=== PATIENT | male | born 1950 | race Caucasian/White ===

== ENCOUNTER → 2016-09-30 | Outpatient (CLI) | payer BC ==
[2016-09-30 10:15] LABS: ALT 40 U/L (21-72); AST 22 U/L (17-59); Cholesterol 219 mg/dL (<200); HDL Cholesterol 55 mg/dL (40-60); Triglycerides 126 mg/dL (<150)
== END | disposition home or self-care (01) ==
LOC: LABWHC1 08:34
PROVIDERS: ATTEND Internal Medicine Cardiovascular Disease
DX: E78.5 Hyperlipidemia, unspecified (principal)
CPT/HCPCS: 36415; 80061; 84450; 84460

== ENCOUNTER 2017-04-25 08:30 | Day surgery (SDC) | payer BC ==
[2017-04-23 17:43] VITALS: BMI 26.4
[2017-04-25] MEDS: LACTATED RINGERS 1,000 ML IV SCH ×2 (09:17→09:18)
[2017-04-25] MEDS: LIDOCAINE 1% 20 ML VIAL (10MG/ML) FOR IV START INTRADERMA PRN ×2 (09:17→09:19)
[2017-04-25 09:18] VITALS: TEMP 97.1
[2017-04-25] MEDS ORDERED: PROPOFOL 10 MG/ML 20 ML VIAL IV ONE (09:18)
--- NOTE | 2017-04-25 09:29 | P.GSHP ---
History of Present Illness H&P Date: 04/25/17 Chief Complaint: History of colon polyps, screening colonoscopy This is a 66-year-old male for from Dr. Scott Bejarano. Patient presents today for screening colonoscopy. His last colonoscopy was approximately 5 years ago. He's had several colonoscopies with colonic polyps. Past Medical History Past Medical History: Deep Vein Thrombosis (DVT), GERD/Reflux, Hyperlipidemia Additional Past Medical History / Comment(s): Hx polyps,hypoglycemia,DVT rt leg post james approx 2006 History of Any Multi-Drug Resistant Organisms: None Reported Past Surgical History: Cholecystectomy Additional Past Surgical History / Comment(s): cataract surgery bilateral with lens implants Past Anesthesia/Blood Transfusion Reactions: No Reported Reaction Smoking Status: Never smoker - Past Family History Mother Family Medical History: Cancer Additional Family Medical History / Comment(s): colon Father Family Medical History: No Reported History Medications and Allergies Home Medications Medication Instructions Recorded Confirmed Type Aspirin 81 mg PO DAILY 04/15/14 04/23/17 History Ezetimibe [Zetia] 10 mg PO DAILY 04/15/14 04/23/17 History Montelukast [Singulair] 10 mg PO DAILY PRN 04/23/17 04/23/17 History Omeprazole [PriLOSEC] 20 mg PO DAILY 04/23/17 04/23/17 History Allergies Allergy/AdvReac Type Severity Reaction Status Date / Time No Known Allergies Allergy Verified 04/25/17 09:02 Surgical - Exam Vital Signs Temp Pulse Resp BP Pulse Ox 97.1 F L 74 16 128/80 97 04/25/17 09:03 04/25/17 09:03 04/25/17 09:03 04/25/17 09:03 04/25/17 09:03 - General well developed, no distress - Eyes PERRL - ENT normal pinna - Neck no masses - Respiratory normal expansion - Cardiovascular Rhythm: regular - Abdomen Abdomen: soft, non tender Assessment and Plan Assessment: History of colon polyps. We'll perform colonoscopy.
--- NOTE | 2017-04-25 09:44 | P.OP ---
Date of Procedure: 04/25/17 Preoperative Diagnosis: History of colon polyps Screening colonoscopy Postoperative Diagnosis: Diverticulosis Right colon polyp Procedure(s) Performed: Colonoscopy Anesthesia: MAC Surgeon: Kenroy Hills Pathology: other (Right colon polyp) Condition: stable Disposition: PACU Description of Procedure: The patient's placed on the endoscopy table lateral position. He received IV sedation. Digital rectal exam was performed which revealed no abnormalities. Flexible colonoscope was then placed patient anus and passed throughout the entire colon. The ileocecal valve was visualized. The cecum appeared normal. In the right colon there was a polyp seen this removed the forcep. The remainder the right colon was normal. The transverse colon was normal. The descending colon was normal. In the sigmoid colon there is extensive diverticular changes. Scope was then brought back the rectum and this appeared normal. Scope was then withdrawn from patient.
[2017-04-25 10:01] VITALS: RESP 18
[2017-04-25 10:07] VITALS: BP 115/69; PULSE 60
== END 2017-04-25 10:23 | disposition home or self-care (01) ==
LOC: ORWHC2ENDO 08:30
PROVIDERS: ATTEND Surgery
DX: D12.2 Benign neoplasm of ascending colon (principal); K57.30 Diverticulosis of large intestine without perforation or abscess without bleeding; E78.5 Hyperlipidemia, unspecified; K21.9 Gastro-esophageal reflux disease without esophagitis; Z79.82 Long term (current) use of aspirin; Z86.718 Personal history of other venous thrombosis and embolism
CPT/HCPCS: 45380; J2704; 88305

== ENCOUNTER 2017-09-23 10:11 | Day surgery (SDC) | payer BC, MEDICARE ==
[2017-09-19 10:07] VITALS: BMI 26.7
[~2017-09-23 10:11] MED LIST: LACTATED RINGERS 1,000 ML IV SCH; LIDOCAINE 1% 20 ML VIAL (10MG/ML) FOR IV START INTRADERMA PRN
[2017-09-23 10:36] VITALS: TEMP 97
[2017-09-23] MEDS ORDERED: PROPOFOL 10 MG/ML 20 ML VIAL IV ONE (10:47)
[2017-09-23] MEDS ORDERED: GLYCOPYRROLATE 0.2 MG/ML 2 ML VIAL ONE (10:47)
[2017-09-23] MEDS ORDERED: LIDOCAINE 1% INJ 10MG/ML (20 ML MDV) ONE (10:47)
--- NOTE | 2017-09-23 10:55 | P.GSHP ---
History of Present Illness H&P Date: 09/23/17 Chief Complaint: GERD This is a 67-year-old male referred from Dr. Scott Bejarano. Patient presents today for EGD. He's had issues with GERD. Past Medical History Past Medical History: Cancer, Deep Vein Thrombosis (DVT), GERD/Reflux, Hyperlipidemia, Pneumonia, Skin Disorder Additional Past Medical History / Comment(s): Hx polyps, hypoglycemia, DVT rt leg post cholecystectomy, skin cancer History of Any Multi-Drug Resistant Organisms: None Reported Past Surgical History: Adenoidectomy, Cholecystectomy, Orthopedic Surgery, Tonsillectomy Additional Past Surgical History / Comment(s): cataract surgery bilateral with lens implants, colonscopy, surgery on rt leg as child, Past Anesthesia/Blood Transfusion Reactions: No Reported Reaction Smoking Status: Never smoker - Past Family History Mother Family Medical History: Cancer Additional Family Medical History / Comment(s): colon Father Family Medical History: No Reported History Medications and Allergies Home Medications Medication Instructions Recorded Confirmed Type Aspirin 81 mg PO DAILY 04/15/14 09/23/17 History Ezetimibe [Zetia] 10 mg PO HS 04/15/14 09/23/17 History Omeprazole [PriLOSEC] 20 mg PO W/SUPPER 04/23/17 09/23/17 History Allergies Allergy/AdvReac Type Severity Reaction Status Date / Time No Known Allergies Allergy Verified 09/23/17 10:19 Surgical - Exam Vital Signs Temp Pulse Resp BP Pulse Ox 97 F L 47 L 16 137/78 98 09/23/17 10:35 09/23/17 10:35 09/23/17 10:35 09/23/17 10:35 09/23/17 10:35 - General well developed, no distress - Eyes PERRL - ENT normal pinna - Neck no masses, no bruits - Respiratory normal expansion, normal respiratory effort - Cardiovascular Rhythm: regular - Abdomen Abdomen: soft, non tender Assessment and Plan Assessment: GERD. We'll perform EGD.
--- NOTE | 2017-09-23 11:02 | P.OP ---
Date of Procedure: 09/23/17 Preoperative Diagnosis: GERD Postoperative Diagnosis: Antral gastritis Moderate size hiatal hernia Mild esophagitis Procedure(s) Performed: EGD Anesthesia: MAC Surgeon: Kenroy Hills Pathology: other (Antrum, esophagus) Condition: stable Disposition: PACU Description of Procedure: The patient's placed on the endoscopy table in the lateral position. He received IV sedation. The gastroscope placed oropharynx passed in the esophagus into the stomach. Scope was placed through the pylorus. The first and second portion of the duodenum appeared normal. Scope was then brought back the antrum and this appeared mildly inflamed. A biopsy was performed. The scope was then retroflexed and the remainder of the stomach appeared normal. The patient had a moderate size hiatal hernia. The GE junction was at 38 cm. The distal esophagus appeared mildly inflamed and a biopsies performed. The proximal esophagus appeared normal. The scope was withdrawn for patient.
[2017-09-23 11:32] VITALS: BP 147/93; PULSE 46; RESP 18
== END 2017-09-23 11:37 | disposition home or self-care (01) ==
LOC: ORWHC2ENDO 10:11
PROVIDERS: ATTEND Surgery
DX: K29.50 Unspecified chronic gastritis without bleeding (principal); K21.0 Gastro-esophageal reflux disease with esophagitis; K44.9 Diaphragmatic hernia without obstruction or gangrene; K29.60 Other gastritis without bleeding; E78.5 Hyperlipidemia, unspecified; Z86.718 Personal history of other venous thrombosis and embolism; Z85.828 Personal history of other malignant neoplasm of skin; Z79.82 Long term (current) use of aspirin; Z80.0 Family history of malignant neoplasm of digestive organs; Z79.899 Other long term (current) drug therapy
CPT/HCPCS: 88305; 43239; J2001; J2704

== ENCOUNTER → 2017-12-12 | Outpatient (CLI) | payer BC ==
[2017-12-12 08:51] LABS: Albumin 4.1 g/dL (3.5-5.0); Bilirubin, Delta 0.2 mg/dL (0.0-0.2); Bilirubin,Unconjugated 0.4 mg/dL (0.0-1.1); Total Bilirubin 0.6 mg/dL (0.2-1.3); Total Protein 6.6 g/dL (6.3-8.2)
== END | disposition home or self-care (01) ==
LOC: LABWHC1 08:14
PROVIDERS: ATTEND Internal Medicine Cardiovascular Disease
DX: E78.5 Hyperlipidemia, unspecified (principal)
CPT/HCPCS: 36415; 80061; 80076

== ENCOUNTER 2018-03-12 11:46 | Inpatient (IN) | payer BC, MEDICARE ==
[2018-03-12] MEDS ORDERED: SODIUM CHLORIDE 0.9% 500 ML 500 ML IV SCH (14:00)
[2018-03-12 14:17] LABS: Basophils % (A) 0 %; Eosinophils % (A) 1 %; HCT 43.8 % (39.0-53.0); HGB 14.6 gm/dL (13.0-17.5); Lymphocytes # (A) 0.6 k/uL (1.0-4.8); Lymphocytes % (A) 15 %; MCH 30.1 pg (25.0-35.0); MCHC 33.4 g/dL (31.0-37.0); MCV 90.1 fL (80.0-100.0); Mean Platelet Volume 8.2; Monocytes # (A) 0.4 k/uL (0-1.0); Monocytes % (A) 9 %; Neutrophils # (A) 3.2 k/uL (1.3-7.7); Neutrophils % (A) 74 %; Platelet Count 154 k/uL (150-450); RBC 4.86 m/uL (4.30-5.90); RDW 12.8 % (11.5-15.5); WBC 4.3 k/uL (3.8-10.6)
[2018-03-12 14:25] LABS: Anion Gap 6 mmol/L; Blood Urea Nitrogen 13 mg/dL (9-20); Calcium 9.1 mg/dL (8.4-10.2); Carbon Dioxide 25 mmol/L (22-30); Chloride 107 mmol/L (98-107); Glucose 98 mg/dL (74-99); Potassium 4.5 mmol/L (3.5-5.1); Sodium 138 mmol/L (137-145)
[2018-03-12] MEDS ORDERED: ASPIRIN 325 MG TAB PO STA (14:25)
[2018-03-12] MEDS ORDERED: NITROGLYCERIN SL TABS 0.4 MG TAB SUBLINGUAL PRN (14:26)
[2018-03-12] MEDS ORDERED: HEPARIN SODIUM,PORCINE 5,000 UNIT/ML 1 ML VIAL IV PRN (14:38)
[2018-03-12] MEDS ORDERED: HEPARIN SODIUM,PORCINE 5,000 UNIT/ML 1 ML VIAL IV ONE (14:38)
--- NOTE | 2018-03-12 14:38 | XR ---
EXAMINATION TYPE: XR chest 2V DATE OF EXAM: 03/12/2018 COMPARISON: 04/05/2011 TECHNIQUE: PA and lateral views submitted. HISTORY: Shortness of breath FINDINGS: The lungs are clear and there is no pneumothorax, pleural effusion, or focal pneumonia. Atheroscler otic change of the aorta. Hypertrophic and degenerative change of the spine. Interstitium is prominen t coarsened. IMPRESSION: 1. Interval mild increase in the interstitium correlate for interstitial pneumonitis or venous conges tion..
[2018-03-12] MEDS ORDERED: CLOPIDOGREL 75 MG TAB PO SCH (14:45)
[2018-03-12] MEDS ORDERED: HEPARIN SOD,PORK IN 0.45% NACL 25,000 UNIT in 0.45% NACL 1 500ML.BAG IV SCH (14:45)
[2018-03-12 15:26] LABS: Prothrombin Time 10.2 sec (9.0-12.0)
[2018-03-12 15:27] LABS: Partial Thromboplastin Time 26.1 sec (22.0-30.0)
[2018-03-12] MEDS ORDERED: RX INFO: IV CONTRAST WAS GIVEN 1 EACH MISC MISCELLANE PRN (16:23)
[2018-03-12 16:24] LABS: Cholesterol 196 mg/dL (<200); HDL Cholesterol 46 mg/dL (40-60); LDL Cholesterol,Calculated 131 mg/dL (0-99); Triglycerides 97 mg/dL (<150)
[2018-03-12] MEDS: AZITHROMYCIN 500 MG in SODIUM CHLORIDE 0.9% 250 ML IVPB SCH (16:34)
[2018-03-12] MEDS: NITROGLYCERIN OINT 1 INCH/GM PACKET TOPICAL SCH ×2 (17:41→23:26)
[2018-03-12] MEDS: methylPREDNISolone SOD SUCCI 125 MG/2 ML VIAL IV SCH ×2 (17:46→23:12)
[2018-03-12] MEDS: ATORVASTATIN 40 MG TAB PO SCH (17:46)
--- NOTE | 2018-03-12 17:46 | CT ---
EXAMINATION TYPE: CT angio chest DATE OF EXAM: 03/12/2018 5:09 PM COMPARISON: None HISTORY: elevated d-dimer CT DLP: 407.4 mGycm Automated exposure control for dose reduction was used. CONTRAST: CTA scan of the thorax is performed with IV Contrast, patient injected with 68 mL of Isovue 370, pulm onary embolism protocol. . FINDINGS: There are 3-D post processed images. Mediastinum is normal. There is no mediastinal adenopathy. There is no evidence of thoracic aortic an eurysm or dissection. There is normal contrast opacification of the pulmonary arteries. I see no fill ing defects. There are no hilar masses. There is small hiatal hernia. There is no pericardial effusio n. There is mild reticular interstitial density at the lung bases. There is no evidence of pulmonary mass. The bony thorax is intact. There is spurring in the thoracic spine. There is 3 cm cortical cyst anterior left kidney. IMPRESSION: NO EVIDENCE OF PULMONARY EMBOLISM. MILD FIBROTIC CHANGES AT THE LUNG BASES. SMALL HIATAL HERNIA.
[2018-03-12 18:15] LABS: Glucose,Whole Blood 87 mg/dL (75-99)
--- NOTE | 2018-03-12 18:24 | P.CNPUL ---
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 has been in good state of health, his prior history is significant for BPH, hiatal hernia, dyslipidemia and hypertension has been doing very well except about 3-4 days ago started having increased cough feeling of chest congestion and increasing shortness of breath and was persistent for the last 4 days however denies any chest pain with those problem patient was seen evaluated examined at primary care's office and advised to be admitted into the hospital for further evaluation and intervention and treatment cardiovascular services has been consulted, patient underwent computed tomography scan of the chest as well as x-ray x-rays unremarkable however computed tomography scan suggestive of prominent interstitium which is somewhat patchy in color suggestive of interstitial pneumonia very early, on specific questioning patient denies any seizure-like to a loss of consciousness) denies any chest pain or radiation of pain, denies any hemoptysis, denies any bowel or bladder dysfunction, since he's been on Flomax the stream have improved, denies any nausea vomiting or diarrhea, patient does not take flu shots as well as does not shake pneumonia shot Review of Systems All systems: negative Past Medical History Past Medical History: Cancer, Deep Vein Thrombosis (DVT), GERD/Reflux, Hyperlipidemia, Pneumonia, Skin Disorder, Syncope Additional Past Medical History / Comment(s): Past pneumonia, bronchitis, chronic sinusitis, current bilateral eyes/styes, DVT R leg post op cholecystectomy, lower GI bleed thought to be d/t hemorrhoids, esophagitis, gastritis, hiatal hernia, diverticular disease, hypoglycemia, collar bone fracture as a child, R leg and R foot malformations with surgery/hardware, skin cancer with removals. History of Any Multi-Drug Resistant Organisms: None Reported Past Surgical History: Adenoidectomy, Cholecystectomy, Orthopedic Surgery, Tonsillectomy Additional Past Surgical History / Comment(s): 2006 Cardiac cath, skin cancer removals, R leg and R foot surgeries as a child to correct malformations-has hardware in foot, L carpal tunnel release, bilateral cataract removals/lens implants, EGD with bx, colonoscopy. Past Anesthesia/Blood Transfusion Reactions: No Reported Reaction Smoking Status: Never smoker - Past Family History Mother Family Medical History: Cancer Additional Family Medical History / Comment(s): Mother had colon cancer with surgery. Maternal grandmother of colon cancer. Father Family Medical History: Myocardial Infarction (MA) Additional Family Medical History / Comment(s): Father of a massive MA at the age of 50 yrs. Paternal grand father of a massive MA at the age of 56yrs. Medications and Allergies Home Medications Medication Instructions Recorded Confirmed Type Aspirin 81 mg PO DAILY 04/15/14 03/12/18 History Omeprazole [PriLOSEC] 20 mg PO DAILY 04/23/17 03/12/18 History Montelukast [Singulair] 10 mg PO DAILY 03/12/18 03/12/18 History Tamsulosin HCl [Flomax] 0.4 mg PO DAILY 03/12/18 03/12/18 History Zetia (Unknown Dose) 1 tab PO DAILY 03/12/18 03/12/18 History Allergies Allergy/AdvReac Type Severity Reaction Status Date / Time No Known Allergies Allergy Verified 09/23/17 10:19 Physical Exam Vitals: Vital Signs Temp Pulse Resp BP Pulse Ox 03/12/18 13:17 98.9 F 61 18 142/71 100 Intake and Output 03/12/18 03/12/18 03/12/18 06:59 14:59 22:59 Intake Total 0 Balance 0 Intake: Intake, IV Titration 0 Amount Heparin Sod,Pork in 0.45% 0 NaCl 25,000 unit In 0.45 % NaCl 1 500ml.bag @ 11.6 UNITS/KG/HR 19.95 mls/hr IV .Q24H [facility] Rx#: [id number] Other: Weight 86 kg - Constitutional General appearance: average body habitus, cooperative, mild distress, obese - EENT Eyes: EOMI, PERRLA, dentition normal, normal appearance Ears: bilateral: normal - Neck Neck: normal ROM Carotids: bilateral: upstroke normal Thyroid: bilateral: normal size - Respiratory Respiratory: bilateral: diminished, rales (More so on the right side compared to left side), negative: dullness, rhonchi, wheezing, prolonged expiration, prolonged inspiration - Cardiovascular Rhythm: regularly irregular Heart sounds: normal: S1, S2 - Gastrointestinal General gastrointestinal: normal bowel sounds, soft - Integumentary Integumentary: normal, normal turgor - Neurologic Neurologic: CNII-XII intact - Musculoskeletal Musculoskeletal: gait normal, generalized weakness, strength equal bilaterally - Psychiatric Psychiatric: A&O x's 3, appropriate affect, intact judgment & insight Results - Laboratory Findings CBC and BMP: 03/12/18 14:05 03/12/18 14:05 PT/INR, D-dimer PT 10.2 sec (9.0-12.0) 03/12/18 14:05 INR 1.0 (<1.2) 03/12/18 14:05 D-Dimer 0.68 mg/L FEU (<0.60) H 03/12/18 14:05 Abnormal lab findings: Abnormal Labs 03/12/18 03/12/18 03/12/18 14:05 14:05 14:05 Lymphocytes # 0.6 L D-Dimer 0.68 H LDL Cholesterol, Calc 131 H - Diagnostic Findings Chest x-ray: report reviewed, image reviewed CT scan - chest: report reviewed, image reviewed (Slight more prominent interstitium especially at bilateral bases) Assessment and Plan Assessment: Interstitial pneumonia/atypical ammonia Suspect viral pneumonia like influenza pneumonia History of dyslipidemia and hypertension Obesity New onset shortness of breath Plan: Gentle rehydration Broad-spectrum antibiotics agree with Rocephin along with Zithromax We'll check nasopharyngeal swab for influenza A and B We'll initiate patient on Tamiflu 75 twice a day for now Further recommendations pending plan of care as per clinical response of the patient Resume home medications Overall observe closely, as always appreciate involving us in care of patient follow this patient with you
[2018-03-12] MEDS: INSULIN ASPART 100 UNIT/ML 1 ML 10 ML VIAL SQ SCH ×2 (18:38→21:52)
--- NOTE | 2018-03-12 19:57 | CONS ---
CONSULTATION ATTENDING: Dr. Scott Cabrera Mr. Guerra is a 67-year-old male with a known family history of coronary artery disease but no history of coronary artery disease in himself who for the last few months has been complaining of progressive dyspnea on exertion. He has no significant peripheral edema. No chest discomfort. No palpitation. He had dizziness and a syncopal episode few months ago. He was seen by Dr. Cabrera today and was febrile in the office. He has mild cough that was non significant and because of that he was direct admit to the hospital. In the hospital, an EKG was done that showed artifact that was read as an ST-segment elevation myocardial infarction. There was concern from the nursing staff. Upon repeating the EKG there was no significant EKG changes. The patient has been followed by Dr. Wiggins on a regular basis. Has no exertional chest discomfort. No tightness in the chest. He has no dizziness recently or palpitation. He has underwent stress test and echo in the past that were unremarkable. Underwent cardiac catheterization about 8 years ago that was unremarkable as well according to him. His coronary risk factors are negative for hypertension or diabetes. He has hyperlipidemia. He is a nonsmoker. He has a family history of premature coronary artery disease. MEDICATIONS: Zetia 10 mg daily, Singulair, tamsulosin, omeprazole, and aspirin once a day. REVIEW OF SYSTEMS: RESPIRATORY SYSTEM: He has no history of documented asthma or emphysema. He is a non smoker. GI SYSTEM: No recent GI bleeding. No peptic ulcer disease. SYSTEM: No dysuria or hematuria. NERVOUS SYSTEM: No history of stroke or seizure. PHYSICAL EXAMINATION: He is a 67-year-old male, alert, oriented, in no apparent distress. Blood pressure 142/70 with a heart rate in the 60s. HEAD: Normocephalic. EYES: Sclerae anicteric. NECK: Good upstroke. No bruit or jugular venous distention. LUNGS: Clear to auscultation. HEART: Regular rate and rhythm. S1, S2. No S3. No S4. No murmur or rub. ABDOMEN: Soft, nontender. Positive bowel sounds. No megaly. EXTREMITIES: No edema. Intact distal pulses. EKG reveals sinus mechanism, normal axis, intervals, normal electrocardiogram. Chest x- ray revealed mild increased interstitium raising the possibility of interstitial pneumonitis. His troponin is less than 0.012. White blood cell 4.3. Hemoglobin 14.6. D-dimer 0.68. BUN and creatinine 13 and 0.79. Potassium 4.5. IMPRESSION: 1. Symptoms of progressive dyspnea of unclear etiology. Patient was febrile today, raising possibility of infectious process. There was a question of infiltrate on the chest x-ray, although not definite. The patient has no clear symptoms of coughing. 2. Hyperlipidemia. 3. Family history of premature coronary artery disease. RECOMMENDATION: From the cardiac standpoint, I will obtain serial enzymes and I will obtain an EKG tomorrow. I will also obtain echocardiogram with Doppler. I will add to his regimen aspirin as well as nitrate. Depending on the results of his lab data and his echocardiogram and further workup, decision can be made regarding the need to undergo further cardiac workup including either stress test or cardiac catheterization if there is any abnormalities. I have discussed with the patient those finding in detail as well as his and they are in full understanding and agreement. Thank you for this consult. We will follow with you. MMODL / IJN: [id number] /
[2018-03-12] MEDS: ALBUTEROL NEBULIZED 2.5 MG/3 ML INHALATION SCH ×2 (20:13→23:44)
[2018-03-12 21:48] LABS: Glucose,Whole Blood 137 mg/dL (75-99)
[2018-03-12] MEDS: OSELTAMIVIR 75 MG CAP PO SCH (23:12)
[2018-03-13] MEDS: ALBUTEROL NEBULIZED 2.5 MG/3 ML INHALATION SCH ×3 (03:17→11:12)
[2018-03-13 04:07] LABS: Basophils % (A) 0 %; Eosinophils % (A) 1 %; HCT 44.7 % (39.0-53.0); HGB 14.6 gm/dL (13.0-17.5); Lymphocytes # (A) 0.5 k/uL (1.0-4.8); Lymphocytes % (A) 20 %; MCH 29.7 pg (25.0-35.0); MCHC 32.6 g/dL (31.0-37.0); MCV 90.9 fL (80.0-100.0); Mean Platelet Volume 7.5; Monocytes # (A) 0.1 k/uL (0-1.0); Monocytes % (A) 3 %; Neutrophils # (A) 1.7 k/uL (1.3-7.7); Neutrophils % (A) 75 %; Platelet Count 163 k/uL (150-450); RBC 4.92 m/uL (4.30-5.90); RDW 12.7 % (11.5-15.5); WBC 2.3 k/uL (3.8-10.6)
[2018-03-13 04:20] LABS: Anion Gap 8 mmol/L; Blood Urea Nitrogen 15 mg/dL (9-20); Carbon Dioxide 22 mmol/L (22-30); Chloride 108 mmol/L (98-107); Glucose 158 mg/dL (74-99); Potassium 4.6 mmol/L (3.5-5.1); Sodium 138 mmol/L (137-145)
[2018-03-13 05:55] LABS: Glucose,Whole Blood 144 mg/dL (75-99)
[2018-03-13] MEDS: INSULIN ASPART 100 UNIT/ML 1 ML 10 ML VIAL SQ SCH ×2 (06:24→12:58)
[2018-03-13] MEDS ORDERED: ASPIRIN 81 MG PO SCH (09:00)
[2018-03-13] MEDS ORDERED: cefTRIAXone 2,000 MG in SODIUM CHLORIDE 0.9% 100 ML IVPB SCH (09:00)
--- NOTE | 2018-03-13 09:07 | HP ---
HISTORY AND PHYSICAL CHIEF COMPLAINT: A 67-year-old white male with fever, chills, myalgias, shortness of breath, chest pain, cannot ambulate due to significant chest pain and shortness of breath. He says he cannot get enough air in his lungs. He had a high fever for the last 2-3 days, coughing up phlegm. He was admitted for IV antibiotics for probable pneumonia and/COPD exacerbation, asthma exacerbation and tracheobronchitis and respiratory failure. Nurse thought there was ST elevation on EKG which is really artifact. His troponin was negative. He is started on Solu-Medrol, IV antibiotics for probable pneumonia. PAST MEDICAL HISTORY: He has hypertension, dyslipidemia, tracheobronchitis versus pneumonia, bronchospasm. Pulmonary and Cardiology have both seen him. Cardiology thought it was more infectious process which I did to too and that is why I admitted him. HOME MEDICINES: Aspirin, Prilosec, Singulair, Flomax, Zetia. ALLERGIES: Negative. Does see rug scratcher every year anyway. FAMILY HISTORY: Mother with cancer, colon cancer. Father myocardial infarction. Lungs show rhonchi and wheeze x4. Decreased breath sounds, pleuritic-type chest pain in the chest. Heart S1, S2. Extraocular movements intact. Neck is supple. He is alert, oriented x3. Normal skin turgor. Cranial nerves are intact. White count, hemoglobin normal. Sodium, potassium normal. BUN and creatinine are normal. D-dimer is high. CAT of the chest is negative for pulmonary embolism. ASSESSMENT: 1. Interstitial pneumonia, atypical pneumonia, possible viral and may be influenza, will have to be checked. 2. Dyslipidemia. 3. Hypertension. 4. Obesity. IV antibiotics, Tamiflu will be started for possible flu, resume home medications. I do not think he has any cardiac etiology at this time. It is more infectious. Monitor him. Possible discharge home if he continues to improve. MMODL / IJN: [id number] /
[2018-03-13] MEDS: ATORVASTATIN 40 MG TAB PO SCH (09:42)
[2018-03-13] MEDS: OSELTAMIVIR 75 MG CAP PO SCH (09:42)
[2018-03-13] MEDS: AZITHROMYCIN 500 MG in SODIUM CHLORIDE 0.9% 250 ML IVPB SCH (09:42)
[2018-03-13] MEDS: NITROGLYCERIN OINT 1 INCH/GM PACKET TOPICAL SCH (09:42)
[2018-03-13] MEDS: methylPREDNISolone SOD SUCCI 125 MG/2 ML VIAL IV SCH (09:42)
--- NOTE | 2018-03-13 10:03 | ECHOF ---
Referral Reason:dyspnea MEASUREMENTS -------- HEIGHT: 177.8 cm WEIGHT: 85.7 kg BP: 142/71 RVIDd: 3.6 cm (< 3.3) IVSd: 1.2 cm (0.6 - 1.1) LVIDd: 4.6 cm (3.9 - 5.3) LVPWd: 1.2 cm (0.6 - 1.1) IVSs: 1.4 cm LVIDs: 3.1 cm LVPWs: 1.8 cm LA Diam: 4.3 cm (2.7 - 3.8) LAESV Index (A-L): 38.74 ml/m Ao Diam: 3.0 cm (2.0 - 3.7) AV Cusp: 2.3 cm (1.5 - 2.6) MV EXCURSION: 16.963 mm (> 18.000) MV EF SLOPE: 68 mm/s (70 - 150) EPSS: 0.3 cm MV E Skyler: 1.03 m/s MV DecT: 98 ms MV A Skyler: 0.77 m/s MV E/A Ratio: 1.34 RAP: 5.00 mmHg RVSP: 17.74 mmHg FINDINGS -------- Sinus rhythm. This was a technically good study. The left ventricular size is normal. There is borderline concentric left ventricular hypertrophy. Overall left ventricular systolic function is normal with, an EF between 60 - 65 %. The right ventricle is mildly enlarged. LA is moderately dilated 34-39 ml/m2 The right atrium is normal in size. The aortic valve is trileaflet and appears structurally normal. The mitral valve is normal. Mild tricuspid regurgitation present. Right ventricular systolic pressure is normal at < 35 mmHg. There is no pulmonic regurgitation present. The aortic root size is normal. IVC Not well visulized. There is no pericardial effusion. CONCLUSIONS -------- 1. Sinus rhythm. 2. This was a technically good study. 3. The left ventricular size is normal. 4. There is borderline concentric left ventricular hypertrophy. 5. Overall left ventricular systolic function is normal with, an EF between 60 - 65 %. 6. The right ventricle is mildly enlarged. 7. LA is moderately dilated 34-39 ml/m2 8. The right atrium is normal in size. 9. The aortic valve is trileaflet and appears structurally normal. 10. The mitral valve is normal. 11. Mild tricuspid regurgitation present. 12. Right ventricular systolic pressure is normal at < 35 mmHg. 13. There is no pulmonic regurgitation present. 14. The aortic root size is normal. 15. IVC Not well visulized. 16. There is no pericardial effusion. FURNACE COMBUSTION ANALYST: Melissa Armas RDCS
[2018-03-13 11:26] LABS: Glucose,Whole Blood 123 mg/dL (75-99)
[2018-03-13 11:36] VITALS: RESP 16
--- NOTE | 2018-03-13 12:10 | PN ---
PROGRESS NOTE Mr. Guerra is a 67-year-old male who presented with symptoms of dyspnea. He is feeling better today. His breathing is stable. He is denying any chest pain. No dizziness. He was diagnosed with influenza A, underwent an echocardiogram with Doppler and that showed a preserved ventricular size and systolic function. He is not having significant cough. He has been by Dr. Flores and started on antibiotics. Otherwise, he is on aspirin. Lipitor 40 mg daily. PHYSICAL EXAMINATION: Blood pressure 120/60 with a heart rate in 60s. LUNGS: A few crackles at the bases. HEART: Regular rate and rhythm. S1, S2. No S3. No rub appreciated. ABDOMEN: Soft, nontender. EXTREMITIES: No edema. LAB DATA: Revealed BUN and creatinine 15 and 0.7, potassium 4.6. His white blood cell is 2.3. IMPRESSION: 1. Influenza A infection. 2. Hyperlipidemia. RECOMMENDATION: From the cardiac standpoint, he should be able to be discharged home and follow up on a regular basis with Dr. Wiggins. MMARABELLAL / TOMMYN: [id number] /
[2018-03-13 12:57] VITALS: BP 131/75; PULSE 65; TEMP 98
--- NOTE | 2018-03-13 16:03 | P.PN ---
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 has been in good state of health, his prior history is significant for BPH, hiatal hernia, dyslipidemia and hypertension has been doing very well except about 3-4 days ago started having increased cough feeling of chest congestion and increasing shortness of breath and was persistent for the last 4 days however denies any chest pain with those problem patient was seen evaluated examined at primary care's office and advised to be admitted into the hospital for further evaluation and intervention and treatment cardiovascular services has been consulted, patient underwent computed tomography scan of the chest as well as x-ray x-rays unremarkable however computed tomography scan suggestive of prominent interstitium which is somewhat patchy in color suggestive of interstitial pneumonia very early, on specific questioning patient denies any seizure-like to a loss of consciousness) denies any chest pain or radiation of pain, denies any hemoptysis, denies any bowel or bladder dysfunction, since he's been on Flomax the stream have improved, denies any nausea vomiting or diarrhea, patient does not take flu shots as well as does not shake pneumonia shot Objective - Vital Signs Vital signs: Vital Signs Temp 98 F 03/13/18 12:00 Pulse 65 03/13/18 12:00 Resp 16 03/13/18 12:00 BP 131/75 03/13/18 12:00 Pulse Ox 95 03/13/18 12:00 Intake & Output 03/12/18 03/13/18 03/13/18 18:59 06:59 18:59 Intake Total 240 600 Output Total 400 Balance 240 600 -400 Weight 86 kg 86.3 kg Intake: Intake, IV Titration 0 600 Amount Heparin Sod,Pork in 0.45% 0 NaCl 25,000 unit In 0.45 % NaCl 1 500ml.bag @ 11.6 UNITS/KG/HR 19.95 mls/hr IV .Q24H [facility] Rx#: [id number] Sodium Chloride 0.9% 500 600 ml 500 ml @ 20 mls/hr IV .Q24H [facility] Rx#:[id number] Oral 240 Output: Urine 400 Other: Voiding Method Urinal Urinal # Voids 1 - Exam - Constitutional General appearance: average body habitus, cooperative, mild distress, obese - EENT Eyes: EOMI, PERRLA, dentition normal, normal appearance Ears: bilateral: normal - Neck Neck: normal ROM Carotids: bilateral: upstroke normal Thyroid: bilateral: normal size - Respiratory Respiratory: bilateral: diminished, rales (More so on the right side compared to left side), negative: dullness, rhonchi, wheezing, prolonged expiration, prolonged inspiration - Cardiovascular Rhythm: regularly irregular Heart sounds: normal: S1, S2 - Gastrointestinal General gastrointestinal: normal bowel sounds, soft - Integumentary Integumentary: normal, normal turgor - Neurologic Neurologic: CNII-XII intact - Musculoskeletal Musculoskeletal: gait normal, generalized weakness, strength equal bilaterally - Psychiatric Psychiatric: A&O x's 3, appropriate affect, intact judgment & insight - Labs CBC & Chem 7: 03/13/18 03:08 03/13/18 03:08 Labs: Abnormal Lab Results - Last 24 Hours (Table) 03/12/18 03/12/18 03/12/18 Range/Units 14:05 21:47 21:53 WBC (3.8-10.6) k/uL Lymphocytes # (1.0-4.8) k/uL Chloride (98-107) mmol/L Glucose (74-99) mg/dL POC Glucose (mg/dL) 137 H (75-99) mg/dL LDL Cholesterol, Calc 131 H (0-99) mg/dL Influenza Type A RNA Detected H (Not Detectd) 03/13/18 03/13/18 03/13/18 Range/Units 03:08 03:08 05:52 WBC 2.3 L (3.8-10.6) k/uL Lymphocytes # 0.5 L (1.0-4.8) k/uL Chloride 108 H (98-107) mmol/L Glucose 158 H (74-99) mg/dL POC Glucose (mg/dL) 144 H (75-99) mg/dL LDL Cholesterol, Calc (0-99) mg/dL Influenza Type A RNA (Not Detectd) 03/13/18 Range/Units 11:13 WBC (3.8-10.6) k/uL Lymphocytes # (1.0-4.8) k/uL Chloride (98-107) mmol/L Glucose (74-99) mg/dL POC Glucose (mg/dL) 123 H (75-99) mg/dL LDL Cholesterol, Calc (0-99) mg/dL Influenza Type A RNA (Not Detectd) Assessment and Plan Assessment: Interstitial pneumonia/atypical ammonia Influenza A pneumonia History of dyslipidemia and hypertension Obesity New onset shortness of breath related to above Plan: Gentle rehydration Broad-spectrum antibiotics agree with Rocephin along with Zithromax Reviewed results of nasopharyngeal swab for influenza A and B Maintain patient on Tamiflu 75 twice a day for now Further recommendations pending plan of care as per clinical response of the patient Resume home medications Overall observe closely, as always appreciate involving us in care of patient follow this patient with you Time with Patient: Greater than 30
== END 2018-03-13 13:10 | disposition home or self-care (01) | DRG 194 ==
LOC: 4MS4W 12:48 → 3SCARD 18:31
PROVIDERS: ADMIT Family Medicine; ATTEND Family Medicine
DX: J09.X1 Influenza due to identified novel influenza A virus with pneumonia (principal); J84.9 Interstitial pulmonary disease, unspecified; E78.5 Hyperlipidemia, unspecified; K21.9 Gastro-esophageal reflux disease without esophagitis; N40.0 Benign prostatic hyperplasia without lower urinary tract symptoms; I10 Essential (primary) hypertension; J32.9 Chronic sinusitis, unspecified; E66.9 Obesity, unspecified; K44.9 Diaphragmatic hernia without obstruction or gangrene; Z96.1 Presence of intraocular lens; Z87.01 Personal history of pneumonia (recurrent); Z79.82 Long term (current) use of aspirin; Z79.899 Other long term (current) drug therapy; Z86.718 Personal history of other venous thrombosis and embolism; Z90.49 Acquired absence of other specified parts of digestive tract; Z85.828 Personal history of other malignant neoplasm of skin; Z98.42 Cataract extraction status, left eye; Z98.41 Cataract extraction status, right eye; Z82.49 Family history of ischemic heart disease and other diseases of the circulatory system; Z80.0 Family history of malignant neoplasm of digestive organs; Z68.27 Body mass index [BMI] 27.0-27.9, adult
CPT/HCPCS: 71046; 71275; 80048; 80061; 83880; 84484; 85025; 85379; 85610; 85730; 87502; 93005; 93306; 94640

== ENCOUNTER → 2019-01-07 | Outpatient (CLI) | payer BC, MEDICARE ==
[2019-01-07 16:14] LABS: Chol/HDL Ratio 3.63; LDL Cholesterol,Calculated 104.2 mg/dL (0.0-131.0); VLDL Calculation 32.8 mg/dL (5.00-40.00)
== END | disposition home or self-care (01) ==
LOC: LABWHC1 07:53
PROVIDERS: ATTEND Internal Medicine Cardiovascular Disease
DX: E78.5 Hyperlipidemia, unspecified (principal)
CPT/HCPCS: 36415; 80061; 84450; 84460

== ENCOUNTER 2019-02-05 07:51 | Day surgery (SDC) | payer BC, MEDICARE ==
[2019-02-03 11:21] VITALS: BMI 25.7
[~2019-02-05 07:51] MED LIST changes: -LIDOCAINE 1% 20 ML VIAL (10MG/ML) FOR IV START INTRADERMA PRN
[2019-02-05] MEDS ORDERED: LIDOCAINE 1% 20 ML VIAL (10MG/ML) FOR IV START INTRADERMA ONE (08:17)
[2019-02-05 08:28] LABS: Glucose,Whole Blood 89 mg/dL (75-99)
[2019-02-05] MEDS ORDERED: LIDOCAINE 1% INJ 10MG/ML (20 ML MDV) ONE (08:40)
[2019-02-05] MEDS ORDERED: PROPOFOL 10 MG/ML 20 ML VIAL IV ONE (08:40)
--- NOTE | 2019-02-05 09:20 | P.GSHP ---
History of Present Illness H&P Date: 02/05/19 Chief Complaint: Colon cancer screening 68-year-old male with personal history of colon polyps. Last colonoscopy 2 years ago. Patient had a right-sided polyp at that time. Family history of colon cancer in his mother and his aunt Past Medical History Past Medical History: Cancer, Deep Vein Thrombosis (DVT), GERD/Reflux, Hyperlipidemia, Pneumonia, Skin Disorder, Syncope Additional Past Medical History / Comment(s): Past pneumonia, bronchitis, chronic sinusitis, DVT R leg post op cholecystectomy, lower GI bleed thought to be d/t hemorrhoids, esophagitis, gastritis, hiatal hernia, diverticular disease, hypoglycemia, collar bone fracture as a child, R leg and R foot malformations with surgery/hardware, skin cancer with removals. difficulty raising rt arm above head d/t shoulder History of Any Multi-Drug Resistant Organisms: None Reported Past Surgical History: Adenoidectomy, Cholecystectomy, Heart Catheterization, Orthopedic Surgery, Tonsillectomy Additional Past Surgical History / Comment(s): 2005 Cardiac cath, skin cancer removals, R leg and R foot surgeries as a child to correct malformations-has hardware in foot, L carpal tunnel release, bilateral cataract removals/lens implants, EGD with bx, colonoscopy. Past Anesthesia/Blood Transfusion Reactions: No Reported Reaction Past Psychological History: No Psychological Hx Reported Additional Psychological History / Comment(s): Pt resides with his spouse. He is independent. Smoking Status: Never smoker Past Alcohol Use History: Occasional Past Drug Use History: None Reported - Past Family History Mother Family Medical History: Cancer Additional Family Medical History / Comment(s): Mother had colon cancer with surgery. Maternal grandmother of colon cancer. Father Family Medical History: Myocardial Infarction ([place]) Additional Family Medical History / Comment(s): Father of a massive AL at the age of 50 yrs. Paternal grand father of a massive AL at the age of 56yrs. Medications and Allergies Home Medications Medication Instructions Recorded Confirmed Type Aspirin 81 mg PO DAILY 04/15/14 02/03/19 History Omeprazole [PriLOSEC] 20 mg PO DAILY PRN 04/23/17 02/03/19 History Tamsulosin HCl [Flomax] 0.4 mg PO DAILY 03/12/18 02/03/19 History Ezetimibe [Zetia] 10 mg PO DAILY 02/03/19 02/05/19 History Allergies Allergy/AdvReac Type Severity Reaction Status Date / Time No Known Allergies Allergy Verified 02/05/19 08:09 Surgical - Exam Physical exam: General: Well-developed, well-nourished HEENT: Normocephalic, sclerae nonicteric Abdomen: Nontender, nondistended Extremities: No edema Neuro: Alert and oriented Assessment and Plan (1) Colon cancer screening Narrative/Plan: Will proceed with colonoscopy Current Visit: Yes Status: Acute Code(s): Z12.11 - ENCOUNTER FOR SCREENING FOR MALIGNANT NEOPLASM OF COLON SNOMED Code(s): 011516789
[2019-02-05 09:21] VITALS: TEMP 97.9
--- NOTE | 2019-02-05 09:21 | P.PCN ---
Date of Procedure: 02/05/19 Procedure(s) Performed: PREOPERATIVE DIAGNOSIS: Colon cancer screening with history of polyps POSTOPERATIVE DIAGNOSIS: Multiple polyps, diverticulosis PROCEDURE: Colonoscopy with snare polypectomy ANESTHESIA: MAC SURGEON: Prateek Horn M.D. SPECIMENS: Polyps ENDOSCOPIC PROCEDURE: The patient was placed on the endoscopy table in the left decubitus position. The Olympus colonoscope was inserted into the anus and passed under direct visualization to the base of the cecum. The appendiceal orifice was visualized. From that point the scope was slowly withdrawn inspecting all surfaces carefully. The cecal base itself was normal. In the ascending colon 2 separate polyps were identified and removed using the snare with cautery technique. At the hepatic flexure 2 additional polyps were identified and removed in a similar fashion. In the distal transverse colon a single small polyp was removed using the snare with cautery technique. The descending colon appeared normal. Sigmoid colon revealed 2 small polyps removed using the snare with cautery technique. The rectum itself was normal. There was mild left-sided diverticulosis. Digital rectal examination was normal. The patient was taken to the recovery room in stable condition per anesthesia guidelines. RECOMMENDATIONS: Await biopsy results. Patient with 7 polyps today and last colonoscopy 2 years ago. Recommend follow-up colonoscopy in 2-3 years at this time.
[2019-02-05 09:24] VITALS: RESP 16
[2019-02-05 09:35] VITALS: PULSE 55
[2019-02-05 09:47] VITALS: BP 159/84
== END 2019-02-05 09:56 | disposition home or self-care (01) ==
LOC: ORWHC2ENDO 07:51
PROVIDERS: ATTEND Surgery
DX: Z12.11 Encounter for screening for malignant neoplasm of colon (principal); D12.2 Benign neoplasm of ascending colon; D12.3 Benign neoplasm of transverse colon; D12.5 Benign neoplasm of sigmoid colon; K57.30 Diverticulosis of large intestine without perforation or abscess without bleeding; Z86.010 Personal history of colon polyps; K21.9 Gastro-esophageal reflux disease without esophagitis; E78.5 Hyperlipidemia, unspecified; E16.2 Hypoglycemia, unspecified; R55 Syncope and collapse; Z85.828 Personal history of other malignant neoplasm of skin; Z86.718 Personal history of other venous thrombosis and embolism; Z87.01 Personal history of pneumonia (recurrent); Z90.49 Acquired absence of other specified parts of digestive tract; Z87.19 Personal history of other diseases of the digestive system; Z87.81 Personal history of (healed) traumatic fracture; Z87.76 Personal history of (corrected) congenital malformations of integument, limbs and musculoskeletal system; Z98.41 Cataract extraction status, right eye; Z98.42 Cataract extraction status, left eye; Z96.1 Presence of intraocular lens; Z79.82 Long term (current) use of aspirin; Z79.899 Other long term (current) drug therapy; Z80.0 Family history of malignant neoplasm of digestive organs; Z82.49 Family history of ischemic heart disease and other diseases of the circulatory system
CPT/HCPCS: 88305; 45385; J2001; J2704

== ENCOUNTER 2022-01-22 08:14 | Day surgery (SDC) | payer BC, MEDICARE ==
[~2022-01-22 08:14] MED LIST changes: +LIDOCAINE 1% (10MG/ML) FOR IV START INTRADERMA PRN
[2022-01-22 08:49] VITALS: TEMP 97.4
[2022-01-22] MEDS ORDERED: PROPOFOL 10 MG/ML 20 ML VIAL IV ONE (09:12)
--- NOTE | 2022-01-22 09:13 | P.GSHP ---
History of Present Illness H&P Date: 01/22/22 Chief Complaint: Colon cancer screening 71-year-old male here today for colonoscopy. Last colonoscopy 3 years ago. Patient had 7 tubular adenomas at that time. Family history of colon cancer in 2 maternal aunts and a maternal grandmother. No bowel complaints. Past Medical History Past Medical History: Cancer, Deep Vein Thrombosis (DVT), Hyperlipidemia, Pneumonia, Skin Disorder, Syncope Additional Past Medical History / Comment(s): Past pneumonia, bronchitis, chronic sinusitis,, DVT R leg post op cholecystectomy, lower GI bleed thought to be d/t hemorrhoids, esophagitis, gastritis, hiatal hernia, diverticular disease, hypoglycemia, collar bone fracture as a child, R leg and R foot malformations with surgery/hardware, skin cancer with removals. History of Any Multi-Drug Resistant Organisms: None Reported Past Surgical History: Adenoidectomy, Cholecystectomy, Orthopedic Surgery, Tonsillectomy Additional Past Surgical History / Comment(s): 2006 Cardiac cath, skin cancer removals, R leg and R foot surgeries as a child to correct malformations-has hardware in foot, L carpal tunnel release, bilateral cataract removals/lens implants, EGD with bx, colonoscopy. Past Anesthesia/Blood Transfusion Reactions: No Reported Reaction Past Psychological History: No Psychological Hx Reported Additional Psychological History / Comment(s): Pt resides with his spouse. He is independent. Smoking Status: Never smoker Past Alcohol Use History: Occasional Past Drug Use History: None Reported - Past Family History Mother Family Medical History: Cancer Additional Family Medical History / Comment(s): Mother had colon cancer with surgery. Maternal grandmother of colon cancer. Father Family Medical History: Myocardial Infarction ([place]) Additional Family Medical History / Comment(s): Father of a massive [place] at the age of 50 yrs. Paternal grand father of a massive [place] at the age of 56yrs. Medications and Allergies Home Medications Medication Instructions Recorded Confirmed Type Aspirin 81 mg PO DAILY 04/15/14 01/17/22 History Tamsulosin HCl [Flomax] 0.4 mg PO DAILY 03/12/18 01/17/22 History Ezetimibe [Zetia] 10 mg PO DAILY 02/03/19 01/17/22 History Allergies Allergy/AdvReac Type Severity Reaction Status Date / Time No Known Allergies Allergy Verified 01/17/22 14:20 Surgical - Exam Vital Signs Temp Pulse Resp BP Pulse Ox 97.4 F L 50 L 20 151/75 98 01/22/22 08:45 01/22/22 08:45 01/22/22 08:45 01/22/22 08:45 01/22/22 08:45 Physical exam: General: Well-developed, well-nourished HEENT: Normocephalic, sclerae nonicteric Abdomen: Nontender, nondistended Extremities: No edema Neuro: Alert and oriented Assessment and Plan (1) Colon cancer screening Narrative/Plan: Will proceed with colonoscopy at this time Current Visit: No Status: Acute Code(s): Z12.11 - ENCOUNTER FOR SCREENING FOR MALIGNANT NEOPLASM OF COLON SNOMED Code(s): 660349519
--- NOTE | 2022-01-22 09:30 | P.PCN ---
Date of Procedure: 01/22/22 Procedure(s) Performed: PREOPERATIVE DIAGNOSIS: History of polyps POSTOPERATIVE DIAGNOSIS: Cecal polyp, mild diverticulosis PROCEDURE: Colonoscopy with biopsy ANESTHESIA: MAC SURGEON: Prateek Hron M.D. SPECIMENS: Cecal polyp ENDOSCOPIC PROCEDURE: The patient was placed on the endoscopy table in the left decubitus position. The Olympus colonoscope was inserted into the anus and passed under direct visualization to the base of the cecum. The appendiceal orifice was visualized. From that point the scope was slowly withdrawn inspecting all surfaces carefully. There was a small polyp in the cecum that was removed using the cold biopsy forceps. The remainder of the ascending transverse descending sigmoid and rectum was normal. There was mild diverticulosis seen as well. Digital rectal examination was normal. The patient was taken to the recovery room in stable condition per anesthesia guid eunice. RECOMMENDATIONS: Await biopsy results. Repeat colonoscopy 5 years.
[2022-01-22 09:33] VITALS: RESP 16
[2022-01-22 09:52] VITALS: BP 142/81
[2022-01-22 10:10] VITALS: PULSE 48
== END 2022-01-22 10:18 | disposition home or self-care (01) ==
LOC: ORWHC2ENDO 08:14
PROVIDERS: ATTEND Surgery
DX: Z12.11 Encounter for screening for malignant neoplasm of colon (principal); D12.0 Benign neoplasm of cecum; K57.30 Diverticulosis of large intestine without perforation or abscess without bleeding; E78.5 Hyperlipidemia, unspecified; J18.9 Pneumonia, unspecified organism; Z87.2 Personal history of diseases of the skin and subcutaneous tissue; Z86.718 Personal history of other venous thrombosis and embolism; Z85.9 Personal history of malignant neoplasm, unspecified; R55 Syncope and collapse; J32.8 Other chronic sinusitis; Z87.19 Personal history of other diseases of the digestive system; E16.2 Hypoglycemia, unspecified; Z79.82 Long term (current) use of aspirin; Z79.899 Other long term (current) drug therapy
CPT/HCPCS: 45380; 88305; J2704

== ENCOUNTER → 2022-08-29 | Outpatient (CLI) | payer MEDICARE ==
[2022-08-29 16:24] LABS: African American GFR (CKD) >90 (>60 ml/min/1.73 sqM); Blood Urea Nitrogen 14 mg/dL (9-20); Non-African American GFR(CKD) >90 (>60 ml/min/1.73 sqM)
--- NOTE | 2022-08-29 22:45 | CT ---
EXAMINATION TYPE: CT chest w con DATE OF EXAM: 08/29/2022 COMPARISON: CTA chest March 12, 2020 HISTORY: COPD, abnormal physical exam. CT DLP: 463.9 mGycm. Automated Exposure Control for Dose Reduction was Utilized. TECHNIQUE: CT scan of the thorax is performed following with IV Contrast, patient injected with 100 CC mL of Isovue 300. FINDINGS: LUNGS: Mild linear scarring and/or atelectasis in the left greater than right lung bases. Upper lungs are clear. There is no pleural effusion or pneumothorax seen. The tracheobronchial tree is patent. MEDIASTINUM: There are no greater than 1 cm hilar or mediastinal lymph nodes. No cardiomegaly or pe ricardial effusion is seen. Coronary artery calcification is present which is noted marker for under lying coronary artery disease. OTHER: Small sized hiatal hernia. Partially exophytic 3.7 cm simple appearing thin-walled cyst upper to mid pole of the left kidney is present. Multilevel spurring and disc space narrowing in the spine. IMPRESSION: Mild bibasilar linear scarring and/or atelectasis redemonstrated. No acute pulmonary proc ess. No significant change from prior CT.
== END | disposition home or self-care (01) ==
LOC: RADCTMAIN 15:39
PROVIDERS: ATTEND Family Medicine
DX: J44.9 Chronic obstructive pulmonary disease, unspecified (principal); J18.9 Pneumonia, unspecified organism
CPT/HCPCS: 82565; 84520; 71260; 36415; Q9967

== ENCOUNTER → 2022-09-04 | Outpatient (CLI) | payer MEDICARE | LOC: CPPFTMAIN 07:16 | PROVIDERS: ATTEND Family Medicine | DX: J44.9 Chronic obstructive pulmonary disease, unspecified (principal); J18.9 Pneumonia, unspecified organism | CPT/HCPCS: 94060; 94726; 94729 ==

== ENCOUNTER → 2023-09-26 | Outpatient (CLI) | payer MEDICARE ==
[2023-09-26 15:15] LABS: Basophils # (A) 0.02 X 10*3/uL (0.00-0.10); Basophils % (A) 0.5 %; Eosinophils # (A) 0.08 X 10*3/uL (0.04-0.35); Eosinophils % (A) 2.1 %; HCT 43.7 % (39.6-50.0); HGB 14.7 g/dL (13.0-17.0); Lymphocytes # (A) 1.36 X 10*3/uL (0.90-5.00); Lymphocytes % (A) 34.9 %; MCH 30.1 pg (27.0-32.0); MCHC 33.6 g/dL (32.0-37.0); MCV 89.4 FL (80.0-97.0); Mean Platelet Volume 10.3 FL (9.5-12.2); Monocytes # (A) 0.39 X 10*3/uL (0.20-1.00); NRBC Per 100 WBC 0 X 10*3/uL (0.00-0.01); Neutrophils # (A) 2.04 X 10*3/uL (1.80-7.70); Neutrophils % (A) 52.2 %; Platelet Count 231 X 10*3/uL (140-440); RBC 4.89 X 10*6/uL (4.40-5.60); RDW 12.7 % (11.5-14.5)
[2023-09-26 15:28] LABS: Blood Urea Nitrogen 14.2 mg/dL (9.0-27.0)
[2023-09-26 15:29] LABS: Carbon Dioxide 24.5 mmol/L (21.6-31.8); Chloride 106 mmol/L (96-109); Potassium 4.5 mmol/L (3.5-5.5); Sodium 142 mmol/L (135-145)
== END | disposition home or self-care (01) ==
LOC: LABPAT 10:41
PROVIDERS: ATTEND Internal Medicine
DX: Z01.812 Encounter for preprocedural laboratory examination (principal); R07.9 Chest pain, unspecified; R06.02 Shortness of breath
CPT/HCPCS: 36415; 80051; 82565; 84520; 85025

== ENCOUNTER 2023-10-01 11:34 | Day surgery (SDC) | payer MEDICARE ==
[~2023-10-01 11:34] MED LIST changes: +ALPRAZolam 0.25 MG TAB PO PRN; +ALPRAZolam 0.5 MG TAB PO PRN; +ASPIRIN 325 MG TAB PO ONE; +HEPARIN SODIUM,PORCINE (1 ML) 2,500 UNIT in SODIUM CHLORIDE 0.9% 250 ML IRRIGATION PRN; +HEPARIN SODIUM,PORCINE 10,000 UNIT in SODIUM CHLORIDE 0.9% 1,000 ML IRRIGATION PRN; -LACTATED RINGERS 1,000 ML IV SCH; -LIDOCAINE 1% (10MG/ML) FOR IV START INTRADERMA PRN; +NITROGLYCERIN SL TABS 0.4 MG TAB SUBLINGUAL PRN; +SODIUM CHLORIDE 0.9% 1,000 ML in EMPTY BAG 1 BAG IV SCH
[2023-10-01] MEDS: SODIUM CHLORIDE 0.9% 1,000 ML IV ONE (12:00)
[2023-10-01 12:35] VITALS: RESP 16; TEMP 98.7
[2023-10-01] MEDS ORDERED: LIDOCAINE 1% INJ 10MG/ML (20 ML MDV) ONE (13:32)
[2023-10-01] MEDS ORDERED: VERAPAMIL 2.5 MG/ML 2 ML AMP ONE (13:33)
[2023-10-01] MEDS ORDERED: fentaNYL (PF) 50 MCG/ML 2 ML AMP ONE (13:33)
[2023-10-01] MEDS: LIDOCAINE 1% INJ 10MG/ML (20 ML MDV) SQ ONE (13:59)
[2023-10-01] MEDS: MIDAZOLAM 2 MG/2 ML VIAL IVP ONE (14:01)
[2023-10-01] MEDS: VERAPAMIL 2.5 MG/ML 4 ML VIAL INTRAARTER ONE (14:02)
[2023-10-01] MEDS: fentaNYL (PF) 50 MCG/1 ML VIAL IVP ONE (14:07)
[2023-10-01] MEDS ORDERED: HEPARIN SODIUM,PORCINE 30 ML 30 ML ONE (14:10)
[2023-10-01] MEDS: HEPARIN SODIUM 1,000 UN/ML (10ML VL) IVP ONE (14:31)
[2023-10-01] MEDS: IOPAMIDOL-370 200ML BTL INTRATHECA ONE (14:44)
--- NOTE | 2023-10-01 15:05 | P.CARDCATH ---
Description of Procedure: PROCEDURES PERFORMED: Left heart catheterization, bilateral coronary angiography, ultrasound guided arterial access INDICATION: abnormal stress test CONSENT:I have discussed the risks, benefits and alternative therapies for the above-mentioned procedure and for both sedation/analgesia as well as necessary blood product administration, if indicated, as they pertain to this patient. The patient has indicated understanding and acceptance of the risks and procedures discussed. PROCEDURE: After the risks, benefits and alternatives of the above mentioned procedure explained in detail with the patient, informed consent was obtained. Patient was taken to the catheterization lab and prepped and draped in usual fashion. Ultrasound guidance was used to assess for arterial access. 1% lidocaine was used to anesthetize the right radial artery. A 6-Spanish sheath was placed in the right radial artery using modified Seldinger technique and ultrasound guidance. Patient was noted to have significant arteria lusoria with tortuous right subclavian aretery. We were able to advance a catheter down to the aortic root however not able to manipulate catheter and engaged the right or the left coronary artery. Therefore the decision was made to perform a left radial approach. A 6-Spanish sheath was placed in the left radial artery using modified Seldinger technique. Left coronary angiography was performed with a 5- Spanish JL 3.5 catheter and right coronary angiography was performed with a 6- Spanish AR2 guide catheter subselectively with the RCA noted to be nondominant and normal. A 5-Spanish FR5 catheter was inserted into the left ventricle and pressure measurements were obtained. The right and left radial sheath was removed and a TR band was placed with hemostasis achieved. The patient tolerated the procedure well. Patient was transported back to the post catheterization holding area in stable condition. Conscious Sedation: Patient was monitored under the direct supervision of myself for conscious sedation using Versed and fentanyl for a total duration of 40 minutes HEMODYNAMICS: Ao: 167/81 LV: 166/5, LVEDP 15 SELECTIVE CORONARY ARTERIOGRAPHY: LEFT MAIN: The left main is a large caliber vessel which bifurcates into the LAD and circumflex. There is no significant stenosis. LEFT ANTERIOR DESCENDING CORONARY ARTERY: LAD is a large caliber vessel which wraps around to the apex. There is no significant stenosis. LEFT CIRCUMFLEX CORONARY ARTERY: Left circumflex is a moderate caliber vessel without significant stenosis. The circumflex gives off the PDA and is the dominant vessel. RIGHT CORONARY ARTERY: The right coronary artery is a small caliber vessel which gives off an acute marginal branch and is a non dominant vessel. There is no significant stenosis. FINAL IMPRESSION: 1. Normal coronary arteries as described above. 2. Normal left sided filling pressures 3. 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 Aggressive risk factor modification per most recent ACC/AHA guidelines. 2. Follow-up in the office in 1-2 weeks.
[2023-10-01 18:02] VITALS: BP 151/67; PULSE 77
== END 2023-10-01 17:39 | disposition home or self-care (01) ==
LOC: CATHCVL 11:34
PROVIDERS: ATTEND Internal Medicine
DX: R94.39 Abnormal result of other cardiovascular function study (principal); R55 Syncope and collapse; E78.5 Hyperlipidemia, unspecified; Z79.899 Other long term (current) drug therapy; Z82.49 Family history of ischemic heart disease and other diseases of the circulatory system; Z79.82 Long term (current) use of aspirin
CPT/HCPCS: 93458; 76937; 99152; 99153 ×2; C1769 ×2; C1887; C1894; J2250; J2001; J1644; J3010; Q9967